=== PATIENT | male | born 1935 | race Caucasian/White ===

== ENCOUNTER 2023-01-18 06:30 | Outpatient (REF) | payer MEDICARE, SELFPAY ==
[2023-01-18 08:16] LABS: Basophils Percent Auto 0.5 % (0.2-2.0); Eosinophils Absolute Auto 0.3 10^3/uL (0.0-0.7); Eosinophils Percent Auto 3.7 % (0.9-7.0); Hematocrit 27.4 % (42.0-54.0); Immature Granulocytes Abs Auto 0.04 10^3/uL (0.00-0.03); Immature Granulocytes Pct Auto 0.5 % (0.0-0.5); Lymphocytes Absolute Auto 1.3 10^3/uL (1.2-3.8); Lymphocytes Percent Auto 18.1 % (20.5-60.0); Mean Corpuscular HGB Conc 32.8 g/dL (29.9-35.2); Mean Corpuscular Hemoglobin 27.9 pg (25.9-34.0); Mean Corpuscular Volume 84.8 fL (80.0-94.0); Mean Platelet Volume 9.7 fL (9.5-13.5); Monocytes Absolute Auto 0.8 10^3/uL (0.3-0.8); Monocytes Percent Auto 11.5 % (1.7-12.0); Neutrophils Absolute Auto 4.8 10^3/uL (1.4-6.5); Neutrophils Percent Auto 65.7 % (43.0-75.0); Platelet Count 326 10^3/uL (150-450); Red Blood Count 3.23 10^6/uL (4.70-6.10); Red Cell Distribution Width 17.4 % (11.0-15.0); White Blood Count 7.3 10^3/uL (4.0-11.0)
[2023-01-18 09:02] LABS: Anion Gap 6.8; BUN Creatinine Ratio 22.2; Calcium 8.5 mg/dL (8.5-10.1); Carbon Dioxide 32.5 mmol/L (21.0-32.0); Chloride 97 mmol/L (98-107); Estimated GFR (African America 52 (>=60); Estimated GFR (Non-African Ame 43 (>=60); Glucose 108 mg/dL (74-106); Potassium 3.3 mmol/L (3.5-5.1); Sodium 133 mmol/L (136-145)
== END 2023-01-18 06:31 | disposition home or self-care (01) ==
LOC: LAB 06:30
PROVIDERS: PCP Family Medicine; Visit Provider Family Medicine
DX: I11.0 Hypertensive heart disease with heart failure (principal); I50.9 Heart failure, unspecified
CPT/HCPCS: 36415; 80048; 83880; 85025